=== PATIENT | female | born 1985 | race Caucasian/White ===

== ENCOUNTER 2017-08-24 10:47 | Emergency (ER) | payer BC, OTHER ==
[~2017-08-24] VITALS: Ht 160 cm; Wt 45.4 kg
[2017-08-24 11:25] LABS: BASOPHILS % (AUTO) 0.5 % (0.0-2.0); EOSINOPHILS # (AUTO) 0.2 K/uL (0.0-0.7); EOSINOPHILS % (AUTO) 3.6 % (0.0-7.0); HEMATOCRIT 39.5 % (31.2-41.9); HEMOGLOBIN 13.7 g/dL (10.9-14.3); LYMPHOCYTES # (AUTO) 3.1 K/uL (20.0-40.0); LYMPHOCYTES % (AUTO) 47.7 % (20.5-51.5); MEAN CORPUSCULAR HEMOGLOBIN 31.5 uug (24.7-32.8); MEAN CORPUSCULAR HGB CONC 35 g/dL (32.3-35.6); MEAN CORPUSCULAR VOLUME 91.3 fL (75.5-95.3); MONOCYTES # (AUTO) 0.5 K/uL (2.0-10.0); NEUTROPHILS # (AUTO) 2.7 K/uL (1.8-8.9); NEUTROPHILS % (AUTO) 41.2 % (38.5-71.5); PLATELET COUNT (AUTO) 229 K/uL (179-408); RED BLOOD CELL COUNT(AUTO) 4.33 MIL/uL (3.63-4.92); WHITE BLOOD COUNT (AUTO) 6.5 K/uL (3.8-11.8)
[2017-08-24 11:29] LABS: CREATININE 0.8 mg/dL (0.6-1.3); POTASSIUM 4.1 mmol/L (3.5-5.1)
--- NOTE | 2017-08-24 11:48 | NUR ---
Patient discharged to home in stable conditon and steady gait. Written and verbal after care instructions given to patient and significant other. Patient verbalizes understanding of instructions.
[2017-08-24 11:49] VITALS: BP 110/66
== END 2017-08-24 11:51 | disposition home or self-care (01) ==
LOC: ER 10:47
DX: R53.1 Weakness (principal)
CPT/HCPCS: 36415; 80048; 84484; 84703; 85025; 85730; 93005; 99285; A4663; 70030-TC